=== PATIENT | female | born 1960 | race African-American/Black ===

== ENCOUNTER 2019-01-20 06:59 | Emergency (ER) | payer OTHER ==
[~2019-01-20] VITALS: Ht 170.2 cm; Wt 76.2 kg
[2019-01-20] MEDS ORDERED: ATECHL PO (07:31)
[2019-01-20] MEDS ORDERED: M.V.I.-12 10 ml10 ML (07:32)
[2019-01-20 07:42] LABS: Source, Urine Clean Catch
[2019-01-20 08:01] LABS: Bilirubin, Urine Neg (Neg); Blood, Urine 3+ (Neg); Glucose Qualitative, Urine Neg (Neg); Ketones, Urine Neg (Neg); Leukocyte Esterase, Urine 3+ (Neg); Nitrite, Urine Neg (Neg); Protein, Urine 2+ (Neg); Specific Gravity, Urine 1.015 (1.003-1.022); Urobilinogen, Urine NORM (Normal)
[2019-01-20 08:07] LABS: Appearance, Urine Hazy (Clear); Color, Urine Yellow (P-Yellow)
[2019-01-20 08:08] LABS: White Blood Cells, Urine TNTC /hpf (0-5)
[2019-01-20 08:10] LABS: Bacteria Many /hpf; Squamous Epithelial Cells Rare /hpf (Few)
[2019-01-20] MEDS ORDERED: Bactrim Ds Tab1 EACH PO (08:19)
[2019-01-20] MEDS ORDERED: Pyridium200 MG PO (08:19)
== END 2019-01-20 08:35 | disposition home or self-care (01) ==
LOC: ER 06:59
PROVIDERS: Emergency Medicine
DX: N39.0 Urinary tract infection, site not specified (principal); J32.9 Chronic sinusitis, unspecified; Z88.8 Allergy status to other drugs, medicaments and biological substances; Z88.5 Allergy status to narcotic agent; Z79.899 Other long term (current) drug therapy
CPT/HCPCS: 81001; 87077; 87086; 87186; 99283